=== PATIENT | female | born 2000 | race Caucasian/White ===

== ENCOUNTER → 2024-06-03 10:53 | Outpatient (REF) | payer BC, OTHER, SELFPAY | LOC: WOUND 10:53 | PROVIDERS: ATTENDING PHYSICIAN Surgery; FAMILY PHYSICIAN Family Medicine | DX: L89.159 Pressure ulcer of sacral region, unspecified stage (principal); G80.0 Spastic quadriplegic cerebral palsy; G40.89 Other seizures; M41.9 Scoliosis, unspecified; K21.9 Gastro-esophageal reflux disease without esophagitis | CPT/HCPCS: 99214 ==